=== PATIENT | female | born 1950 | race Caucasian/White ===

== ENCOUNTER → 2016-07-21 | Outpatient (CLI) | payer MEDICARE ==
[~2016-07-21] MED LIST: ADV250INH INH; ALBU83IN INH; ALPR0.25 PO; IPRA2IN INH; OMEP40CA2 PO; PRED10TA PO
--- NOTE | 2016-07-21 10:17 | REP ---
CT study of the chest without contrast: History: Solitary pulmonary nodule. Comparison CT study is from August 09, 2015. This was read as showing a 4 mm pulmonary nodule in the superior segment of the right lower lobe. Follow-up was recommended. CT findings: The lungs remain quite hyperinflated with advanced emphysematous changes most notably throughout the upper lobes and the superior segments of the lower lobes. This is unchanged. There is some mucoid material along the right lateral margin of the upper trachea. Tracheobronchial tree is otherwise unchanged. There is no evidence of pleural effusion or pericardial effusion. There is coarse linear fibrosis in several locations including the anterior segment of the left upper lobe, and in the lower lobes bilaterally. There is a new largely linear irregular density in the right upper lobe on today's CT study. The solid portion of this measures 1.1 x 0.7 x 1.5 cm. This was not apparent on the previous scan. An area of fibrosis is suspected perhaps postinflammatory but I cannot exclude a developing neoplasm. This merits follow-up. The previously noted noncalcified nodule in the right lower lobe is again seen unchanged. It is rectangular in shape with dimensions of 5 x 3 mm. It is unchanged from the August 09, 2015 study. No other significant nodule is appreciated. No bony destructive lesion is seen. Sagittal images demonstrate wedge compression fracture deformities at two mid thoracic vertebrae with exaggerated thoracic kyphosis as a result. These are unchanged from the August 26, 2015 study. A hiatal hernia is noted. There are stable right retrocrural lymph nodes unchanged from prior study. Impression: 1. There is a 1.5 cm new somewhat spiculated but fibrotic appearing density in the right upper lobe. 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 Three month follow-up CT study recommended. 2. The previously noted 4 mm nodule in the right lower lobe is stable. 3. Severe COPD changes. 4. Hiatal hernia and stable retrocrural lymph nodes. Signed by Dutch Samayoa MD 07/21/2016 12:23 P
== END ==
LOC: M RAD 09:13
PROVIDERS: ATTEND Internal Medicine Pulmonary Disease
DX: R91.1 Solitary pulmonary nodule (principal); J44.9 Chronic obstructive pulmonary disease, unspecified; K44.9 Diaphragmatic hernia without obstruction or gangrene

== ENCOUNTER → 2016-07-22 | Outpatient (CLI) | payer MEDICARE ==
[2016-07-22 14:06] LABS: ANION GAP 9 MEQ/L (8-16); BLOOD UREA NITROGEN 11 MG/DL (7-18); CALCIUM LEVEL 8.5 MG/DL (8.8-10.2); CARBON DIOXIDE LEVEL 29 MEQ/L (21-32); CHLORIDE LEVEL 102 MEQ/L (98-107); CREATININE FOR GFR 0.76 MG/DL (0.55-1.02); GLOMERULAR FILTRATION RATE > 60.0 (>45); GLUCOSE, FASTING 94 MG/DL (80-110); POTASSIUM SERUM 4.5 MEQ/L (3.5-5.1); SODIUM LEVEL 140 MEQ/L (136-145)
== END ==
LOC: M WUC 11:25
PROVIDERS: ATTEND Internal Medicine Endocrinology, Diabetes & Metabolism
DX: M81.8 Other osteoporosis without current pathological fracture (principal)

== ENCOUNTER → 2016-08-05 | Outpatient (CLI) | payer MEDICARE ==
[2016-08-05 13:16] LABS: IONIZED CALCIUM 4.6 MG/DL (4.5-5.3)
[2016-08-05 13:53] LABS: CALCIUM LEVEL 8.9 MG/DL (8.8-10.2)
== END ==
LOC: M WUC 11:45
PROVIDERS: ATTEND Physician Assistant Medical
DX: M81.8 Other osteoporosis without current pathological fracture (principal)

== ENCOUNTER → 2016-09-01 | Outpatient (CLI) | payer MEDICARE ==
[2016-09-01 09:28] LABS: IONIZED CALCIUM 4.7 MG/DL (4.5-5.3)
[2016-09-01 10:11] LABS: CALCIUM LEVEL 8.8 MG/DL (8.8-10.2)
== END ==
LOC: M WUC 08:37
PROVIDERS: ATTEND Physician Assistant Medical
DX: M81.8 Other osteoporosis without current pathological fracture (principal)

== ENCOUNTER → 2016-12-05 | Outpatient (REF) | payer MEDICARE | LOC: M LAB REF 16:20 | DX: N39.0 Urinary tract infection, site not specified (principal) ==

== ENCOUNTER → 2016-12-08 | Outpatient (CLI) | payer MEDICARE ==
[2016-12-08 10:57] LABS: ANION GAP 6 MEQ/L (8-16); BLOOD UREA NITROGEN 11 MG/DL (7-18); CALCIUM LEVEL 9.3 MG/DL (8.8-10.2); CARBON DIOXIDE LEVEL 31 MEQ/L (21-32); CHLORIDE LEVEL 100 MEQ/L (98-107); CREATININE FOR GFR 0.84 MG/DL (0.55-1.02); GLOMERULAR FILTRATION RATE > 60.0 (>45); GLUCOSE, FASTING 102 MG/DL (80-110); SODIUM LEVEL 137 MEQ/L (136-145)
[2016-12-08 10:58] LABS: POTASSIUM SERUM 5.4 MEQ/L (3.5-5.1)
== END ==
LOC: M WUC 08:34
PROVIDERS: ATTEND Physician Assistant Medical
DX: M81.8 Other osteoporosis without current pathological fracture (principal); E55.9 Vitamin D deficiency, unspecified

== ENCOUNTER → 2018-01-02 | Outpatient (CLI) | payer MEDICARE ==
[2018-01-02 16:50] LABS: BASO # 0.1 10^3/uL (0.0-0.2); BASO % 0.8 % (0.0-1.0); EOS # 0.2 10^3/uL (0.0-0.50); EOS % 1.9 % (0.0-3.0); HEMATOCRIT 56.4 % (36.0-47.0); HEMOGLOBIN 18.7 g/dl (12.0-15.5); IMMATURE GRANULOCYTE % 0.1 % (0-3.0); LYMPH # 1.1 10^3/uL (1.5-4.5); LYMPH % 14.2 % (24.0-44.0); MEAN CORPUSCULAR HEMOGLOBIN 35.5 pg (27.0-33.0); MEAN CORPUSCULAR HGB CONC 33.2 g/dl (32.0-36.5); MONO # 0.4 10^3/uL (0.0-0.8); NEUTROPHILS # 6.2 10^3/uL (1.8-7.7); PLATELET COUNT, AUTOMATED 199 10^3/uL (150-450); RED BLOOD COUNT 5.27 10^6/uL (4.00-5.40); RED CELL DISTRIBUTION WIDTH 12.4 % (11.5-14.5)
[2018-01-02 17:00] LABS: ALBUMIN 4.2 GM/DL (3.2-5.2); ALBUMIN/GLOBULIN RATIO 1.14 (1.00-1.93); ALKALINE PHOSPHATASE 111 U/L (45-117); ALT/SGPT 19 U/L (12-78); ANION GAP 11 MEQ/L (8-16); AST/SGOT 16 U/L (7-37); BILIRUBIN,TOTAL 1.2 MG/DL (0.2-1.0); BLOOD UREA NITROGEN 10 MG/DL (7-18); CALCIUM LEVEL 9.1 MG/DL (8.8-10.2); CARBON DIOXIDE LEVEL 26 MEQ/L (21-32); CHLORIDE LEVEL 100 MEQ/L (98-107); CHOLESTEROL LEVEL 209 MG/DL (<200); CHOLESTEROL RISK RATIO 2.132 (<5); CREATININE FOR GFR 0.95 MG/DL (0.55-1.30); GLOMERULAR FILTRATION RATE > 60.0 (>45); GLUCOSE, FASTING 101 MG/DL (70-100); HDL CHOLESTEROL 98 MG/DL (>40); LDL CHOLESTEROL 87.2 MG/DL (<100); NON-HDL-C 111 MG/DL; POTASSIUM SERUM 4.8 MEQ/L (3.5-5.1); SODIUM LEVEL 137 MEQ/L (136-145); TOTAL PROTEIN 7.9 GM/DL (6.4-8.2); TRIGLYCERIDES LEVEL 119 MG/DL (<150)
[2018-01-02 18:10] LABS: TOTAL 25(OH) VITAMIN D 40.4 NG/ML (30.0-100.0)
== END ==
LOC: M WUC 11:26
DX: J44.1 Chronic obstructive pulmonary disease with (acute) exacerbation (principal); I10 Essential (primary) hypertension; E78.2 Mixed hyperlipidemia; E55.9 Vitamin D deficiency, unspecified
CPT/HCPCS: 80053

== ENCOUNTER 2018-04-04 14:45 | Inpatient (IN) | payer MEDICARE ==
[2018-04-04] MEDS: IPRATROPIUM 0.5MG/ALBUTEROL 2.5MG INH SOL UD 3ML (DUONEB)(J7620) NEB ×2 (15:11→20:00)
[2018-04-04 15:33] LABS: BASO % 0.2 % (0.0-1.0); EOS % 0.1 % (0.0-3.0); HEMATOCRIT 51.6 % (36.0-47.0); HEMOGLOBIN 16.8 g/dl (12.0-15.5); IMMATURE GRANULOCYTE % 0.4 % (0-3.0); LYMPH # 0.3 10^3/uL (1.5-4.5); LYMPH % 1.6 % (24.0-44.0); MEAN CORPUSCULAR HEMOGLOBIN 35.1 pg (27.0-33.0); MEAN CORPUSCULAR HGB CONC 32.6 g/dl (32.0-36.5); MEAN CORPUSCULAR VOLUME 107.7 fl (80.0-96.0); MONO # 0.3 10^3/uL (0.0-0.8); NEUTROPHILS % 95.7 % (36.0-66.0); PLATELET COUNT, AUTOMATED 139 10^3/uL (150-450); RED BLOOD COUNT 4.79 10^6/uL (4.00-5.40); RED CELL DISTRIBUTION WIDTH 14.2 % (11.5-14.5); WHITE BLOOD COUNT 15.7 10^3/uL (4.0-10.0)
[2018-04-04 15:34] LABS: BEDSIDE GLUCOSE 159 MG/DL (80-115)
[2018-04-04 15:44] LABS: INR 1.15; PROTHROMBIN TIME 14.9 SECONDS (12.1-14.4)
[2018-04-04 15:45] LABS: PARTIAL THROMBOPLASTIN TIME 29.6 SECONDS (25.4-37.6)
[2018-04-04 15:47] LABS: POS COUNT POS FLAG; POSITIVE DIFF POS FLAG
[2018-04-04 15:49] LABS: ABG BASE EXCESS -2.6 (-2.0-2.0); ABG HCO3 22.2 MEQ/L (22.0-26.0); ABG O2 SATURATION 91.3 % (95.0-99.0); ABG PARTIAL PRESSURE CO2 38.6 mmHg (35.0-45.0); ABG PARTIAL PRESSURE O2 62.8 mmHg (75.0-100.0); ABG STANDARD HCO3 22.2 MEQ/L (22.0-26.0); ABG TOTAL CO2 23.4 MEQ/L (23.0-31.0); ABG pH (ARTERIAL) 7.377 UNITS (7.350-7.450)
[2018-04-04 16:04] LABS: ANION GAP 14 MEQ/L (8-16); BLOOD UREA NITROGEN 20 MG/DL (7-18); CARBON DIOXIDE LEVEL 23 MEQ/L (21-32); CHLORIDE LEVEL 103 MEQ/L (98-107); CPK CREATINE PHOSPHOKINASE 65 U/L (26-192); CREATININE FOR GFR 1.27 MG/DL (0.55-1.30); FREE T4 1.53 NG/DL (0.76-1.46); GLOMERULAR FILTRATION RATE 44.4 (>45); GLUCOSE, FASTING 174 MG/DL (70-100); MAGNESIUM LEVEL 2.3 MG/DL (1.8-2.4); MB/CK RELATIVE INDEX 4.46 (< OR =4); POTASSIUM SERUM 4.1 MEQ/L (3.5-5.1); SODIUM LEVEL 140 MEQ/L (136-145); TROPONIN I 0.13 NG/ML (< 0.10)
[2018-04-04] MEDS ORDERED: ISOVUE-370 76% 100ML VIAL (Q9967) As Ordered (16:52)
[2018-04-04 18:40] LABS: CPK CREATINE PHOSPHOKINASE 54 U/L (26-192); MB/CK RELATIVE INDEX 5.56 (< OR =4); TROPONIN I 0.14 NG/ML (< 0.10)
[2018-04-04] MEDS ORDERED: IPRATROPIUM 0.5MG/ALBUTEROL 2.5MG INH SOL UD 3ML (DUONEB)(J7620) NEB (19:00)
[2018-04-04 19:54] LABS: NT-PRO BNP 11761 PG/ML (<125)
[2018-04-04] MEDS: FUROSEMIDE 40 MG/4 ML VIAL (J1940) IV (20:48)
[2018-04-04] MEDS: ADVAIR HFA 230/21MCG INHALER INH (21:11)
[2018-04-04] MEDS: predniSONE 20 MG TAB PO (23:39)
[2018-04-04] MEDS: HEPARIN SOD (PORCINE) 5000 UNITS/ML VIAL SC (23:39)
[2018-04-05 00:37] LABS: TROPONIN I 0.12 NG/ML (< 0.10)
[2018-04-05] MEDS: IPRATROPIUM 0.5MG/ALBUTEROL 2.5MG INH SOL UD 3ML (DUONEB)(J7620) NEB ×4 (01:38→19:56)
[2018-04-05 04:57] LABS: HEMATOCRIT 47.5 % (36.0-47.0); HEMOGLOBIN 15.8 g/dl (12.0-15.5); IMMATURE GRANULOCYTE % 0.2 % (0-3.0); LYMPH # 0.3 10^3/uL (1.5-4.5); MEAN CORPUSCULAR HGB CONC 33.3 g/dl (32.0-36.5); MEAN CORPUSCULAR VOLUME 105.1 fl (80.0-96.0); MONO # 0.2 10^3/uL (0.0-0.8); MONO % 4.6 % (0.0-5.0); NEUTROPHILS # 4.6 10^3/uL (1.8-7.7); NEUTROPHILS % 89.2 % (36.0-66.0); PLATELET COUNT, AUTOMATED 101 10^3/uL (150-450); RED BLOOD COUNT 4.52 10^6/uL (4.00-5.40); WHITE BLOOD COUNT 5.2 10^3/uL (4.0-10.0)
[2018-04-05 05:14] LABS: POS COUNT POS FLAG
[2018-04-05 05:33] LABS: FREE T4 1.47 NG/DL (0.76-1.46)
[2018-04-05 05:33] LABS: THYROID STIMULATING HORMONE 0.762 uIU/ML (0.358-3.740)
[2018-04-05 05:34] LABS: ANION GAP 10 MEQ/L (8-16); BLOOD UREA NITROGEN 21 MG/DL (7-18); CALCIUM LEVEL 8.5 MG/DL (8.8-10.2); CARBON DIOXIDE LEVEL 28 MEQ/L (21-32); CHLORIDE LEVEL 101 MEQ/L (98-107); CREATININE FOR GFR 1.01 MG/DL (0.55-1.30); GLOMERULAR FILTRATION RATE 57.9 (>45); GLUCOSE, FASTING 124 MG/DL (70-100); POTASSIUM SERUM 3.9 MEQ/L (3.5-5.1); SODIUM LEVEL 139 MEQ/L (136-145); TROPONIN I 0.16 NG/ML (< 0.10)
[2018-04-05] MEDS: LevoFLOXacin 500 MG TABLET PO (06:20)
[2018-04-05] MEDS: HEPARIN SOD (PORCINE) 5000 UNITS/ML VIAL SC ×3 (06:22→22:00)
[2018-04-05] MEDS: ADVAIR HFA 230/21MCG INHALER INH ×2 (07:55→20:02)
[2018-04-05] MEDS: OMEPRAZOLE 20 MG CAP PO (08:04)
[2018-04-05] MEDS: methylPREDNISolone INJ 125 MG/2 ML VIAL (J2930) IV (08:04)
[2018-04-05] MEDS ORDERED: amLODIPine 5 MG TAB PO (09:00)
[2018-04-05 09:04] LABS: C REACTIVE PROTEIN QUANTITATIV 1.11 MG/DL (0.00-0.30)
[2018-04-05 10:56] LABS: CPK CREATINE PHOSPHOKINASE 61 U/L (26-192); MB/CK RELATIVE INDEX 4.43 (< OR =4); TROPONIN I 0.12 NG/ML (< 0.10)
[2018-04-05] MEDS: ACETAMINOPHEN TAB 650MG DOSE (2X325MG) PO ×2 (13:16→18:41)
[2018-04-05 16:39] LABS: CPK CREATINE PHOSPHOKINASE 76 U/L (26-192); MB/CK RELATIVE INDEX 3.42 (< OR =4)
[2018-04-05] MEDS: predniSONE 50 MG TAB PO (20:05)
[2018-04-06] MEDS: IPRATROPIUM 0.5MG/ALBUTEROL 2.5MG INH SOL UD 3ML (DUONEB)(J7620) NEB ×2 (01:10→09:07)
[2018-04-06 05:02] LABS: HEMATOCRIT 47.4 % (36.0-47.0); HEMOGLOBIN 15.4 g/dl (12.0-15.5); IMMATURE GRANULOCYTE % 0.6 % (0-3.0); LYMPH # 0.3 10^3/uL (1.5-4.5); LYMPH % 5.5 % (24.0-44.0); MEAN CORPUSCULAR HEMOGLOBIN 34.8 pg (27.0-33.0); MEAN CORPUSCULAR HGB CONC 32.5 g/dl (32.0-36.5); MONO # 0.2 10^3/uL (0.0-0.8); MONO % 4.3 % (0.0-5.0); NEUTROPHILS # 4.5 10^3/uL (1.8-7.7); NEUTROPHILS % 89.6 % (36.0-66.0); PLATELET COUNT, AUTOMATED 100 10^3/uL (150-450); RED BLOOD COUNT 4.43 10^6/uL (4.00-5.40); RED CELL DISTRIBUTION WIDTH 13.9 % (11.5-14.5); WHITE BLOOD COUNT 5.1 10^3/uL (4.0-10.0)
[2018-04-06 05:27] LABS: ANION GAP 8 MEQ/L (8-16); BLOOD UREA NITROGEN 28 MG/DL (7-18); C REACTIVE PROTEIN QUANTITATIV 0.68 MG/DL (0.00-0.30); CALCIUM LEVEL 8.2 MG/DL (8.8-10.2); CARBON DIOXIDE LEVEL 30 MEQ/L (21-32); CHLORIDE LEVEL 101 MEQ/L (98-107); GLOMERULAR FILTRATION RATE 58.5 (>45); GLUCOSE, FASTING 137 MG/DL (70-100); POTASSIUM SERUM 3.9 MEQ/L (3.5-5.1); SODIUM LEVEL 139 MEQ/L (136-145)
[2018-04-06 05:31] LABS: POSITIVE DIFF POS FLAG
[2018-04-06] MEDS: HEPARIN SOD (PORCINE) 5000 UNITS/ML VIAL SC (06:08)
[2018-04-06] MEDS: LevoFLOXacin 500 MG TABLET PO (06:08)
[2018-04-06] MEDS: OMEPRAZOLE 20 MG CAP PO (07:46)
[2018-04-06] MEDS: ALPRAZolam 0.25 MG TAB PO (07:46)
[2018-04-06] MEDS: predniSONE 50 MG TAB PO (07:46)
[2018-04-06] MEDS: ADVAIR HFA 230/21MCG INHALER INH (09:07)
== END 2018-04-06 13:54 | disposition home health service (06) | DRG 189 ==
LOC: M ED 14:45 → M ED INP 20:08 → M ICU 22:55
DX: J96.21 Acute and chronic respiratory failure with hypoxia (principal); I24.9 Acute ischemic heart disease, unspecified; Z66 Do not resuscitate; R55 Syncope and collapse; J44.9 Chronic obstructive pulmonary disease, unspecified; F41.9 Anxiety disorder, unspecified; R91.8 Other nonspecific abnormal finding of lung field; I10 Essential (primary) hypertension; K21.9 Gastro-esophageal reflux disease without esophagitis; Z99.81 Dependence on supplemental oxygen; Z79.51 Long term (current) use of inhaled steroids; Z79.899 Other long term (current) drug therapy; Z88.0 Allergy status to penicillin; Z88.2 Allergy status to sulfonamides; Z88.1 Allergy status to other antibiotic agents; Z87.891 Personal history of nicotine dependence; I27.20 Pulmonary hypertension, unspecified